=== PATIENT | male | born 1955 | race Caucasian/White ===

== ENCOUNTER 2020-10-10 21:38 | Emergency (ER) | payer MEDICARE ==
[~2020-10-10] VITALS: Ht 175.3 cm; Wt 70.4 kg
[~2020-10-10 21:38] MED LIST: ASPI81TA45 PO; ATOR20TA37 PO; LISI5TAB7 PO; METO25TA91 PO
[2020-10-10] MEDS ORDERED: SODIUM CHLORIDE FLUSH 10ML SYR IVF ONE (22:00)
[2020-10-10] MEDS ORDERED: SODIUM CHLORIDE 0.9% 1,000ML IVBOLUS ONE ×2 (22:00→23:00)
--- NOTE | 2020-10-10 22:31 | NUR ---
Izabella MEDINA notified that patients BP decreased back down to the 70's systolic. 1L of NS started for hypotension
--- NOTE | 2020-10-10 22:46 | NUR ---
Milagros - daughter - call with updates [phone]
[2020-10-10 22:47] LABS: BASOPHILS % (AUTO) 1 % (0-1); EOSINOPHILS % (AUTO) 1 % (1-7); LYMPHOCYTES % (AUTO) 12 % (22-44); MEAN CORPUSCULAR HEMOGLOBIN 29.9 pg (27.5-34.5); MEAN CORPUSCULAR HGB CONC 34.1 g/dL (33.2-36.2); MEAN PLATELET VOLUME 7.1 fL (7.4-10.4); MONOCYTES % (AUTO) 7 % (2-9); NEUTROPHILS % (AUTO) 79 % (42-75); PLATELET COUNT 401 x10^3/uL (130-400); RED BLOOD COUNT 3.53 x10^6/uL (4.38-5.82); RED CELL DISTRIBUTION WIDTH 14.4 % (9.4-14.8)
[2020-10-10 22:57] LABS: ALANINE AMINOTRANSFERASE 24 U/L (12-78); ALBUMIN 2.2 g/dL (3.4-5.0); ANION GAP 4 mmol/L (5-15); CALCIUM 7.1 mg/dL (8.5-10.1); CHLORIDE 103 mmol/L (98-107); CREATININE 0.86 mg/dL (0.7-1.3); T4 (THYROXINE) 8.7 mcg/dL (4.5-12.1)
[2020-10-10] MEDS ORDERED: SODIUM CHLORIDE 0.9% 1,000 ML IV SCH (23:00)
[2020-10-10 23:07] LABS: ALKALINE PHOSPHATASE 64 U/L (45-117); BILIRUBIN,TOTAL 0.3 mg/dL (0.2-1.0); TOTAL PROTEIN 5.6 g/dL (6.4-8.2); TROPONIN I 0.016 ng/mL (0.000-0.045)
--- NOTE | 2020-10-11 | NUR ---
throughput rn: hospital bed requested at this time.
--- NOTE | 2020-10-11 02:59 | NUR ---
report given to Gera TORRES
--- NOTE | 2020-10-11 03:12 | NUR ---
PT ASLEEP IN BED, ALL NEEDS IN REACH, CALL LIGHT IN REACH, NAD AT THIS TIME, VSS
[2020-10-11] MEDS ORDERED: LACTATED RINGERS 1,000 ML IV SCH (03:30)
[2020-10-11] MEDS ORDERED: ASPIRIN 81 MG TABLET EC PO SCH (06:00)
--- NOTE | 2020-10-11 07:45 | NUR ---
cardiac rhythm strip printed and placed on chart.
--- NOTE | 2020-10-11 08:00 | NUR ---
meliton Zaidi [phone] called requesting update.
--- NOTE | 2020-10-11 10:05 | NUR ---
MEAL TRAY AND COFFEE PROVIDED TO PT WITH DR MORTON VERBAL
[2020-10-11] MEDS ORDERED: ASPIRIN 81 MG TABLET EC ONE (10:08)
[2020-10-11 10:23] LABS: MICROSCOPIC AUTO
[2020-10-11 10:34] LABS: AMPHETAMINE SCREEN, URINE Negative (Negative); BARBITURATE SCREEN, URINE Negative (Negative); BENZODIAZEPINE SCREEN, URINE Negative (Negative); CANNABINOID SCREEN, URINE Positive (Negative); COCAINE SCREEN, URINE Negative (Negative); METHADONE SCREEN, URINE Negative (Negative); OPIATE SCREEN, URINE Negative (Negative)
[2020-10-11 12:53] VITALS: BP 152/75
[2020-10-11] MEDS ORDERED: CEFD300C37 PO (13:06)
[2020-10-11] MEDS ORDERED: ATORVASTATIN 20 MG TABLET PO SCH (21:00)
== END 2020-10-11 15:25 | disposition home or self-care (01) ==
LOC: ED 10-11 00:31 → EDIP 10-11 00:42 → UNDOADMOB 10-11 00:42 → INTOOBSV 10-11 00:42
DX: R53.1 Weakness (principal); I95.0 Idiopathic hypotension; R41.82 Altered mental status, unspecified; I25.2 Old myocardial infarction; I10 Essential (primary) hypertension
CPT/HCPCS: 36415; 71045; 80053; 80307; 80320; 81001; 83605; 83735; 83880; 84145; 84436; 84443; 84484; 85025; 85379; 87086; 93005; 96360; 96361; 99285; J7030; J7120; G0480